=== PATIENT | female | born 1930 | race Caucasian/White ===

== ENCOUNTER 2017-11-29 12:21 | Inpatient (IN) | payer OTHER, BC ==
[~2017-11-29] VITALS: Ht 154.9 cm; Wt 68.5 kg
[2017-11-29] VITALS (9 sets, daily range): BP systolic 89–166; BP diastolic 55–76
[~2017-11-29 12:21] MED LIST: Ascorbic Acid,Ester- PO; CALAN SR,COVER240 MG PO; Calan SR,Covera HS,I PO; Flexeril PO; METHADONE10 MG PO; METHadone HCl PO; OXYCODONE HCL5 MG PO; RESTORIL15 MG PO; RESTORIL30 MG PO; Tums,OsCal PO; Vitamin B Complex PO; Vitamin D PO; XANAX0.25 MG PO; Xanax PO; ZOCOR20 MG PO; Zocor PO; oxyCODONE PO
[2017-11-29 13:06] LABS: HEMATOCRIT 40.9 % (36.0-46.0); HEMOGLOBIN 13.4 G/DL (11.9-15.5); MCH 30.7 PG (29.0-34.0); MCHC 32.8 G/DL (30.0-36.0); MCV 93.6 FL (83-99); PLATELET COUNT 401 K/uL (156-360); RBC DIS.WIDTH-CV 13.2 % (11.8-14.6); RBC DIS.WIDTH-SD 45.4 % (39-53); RED BLOOD COUNT 4.37 M/uL (3.80-5.20); WHITE BLOOD COUNT 9.2 K/uL (4.1-10.2)
[2017-11-29 13:23] LABS: CHLORIDE 99 MEQ/L (99-109); CREATININE 0.6 MG/DL (0.6-1.3); GFR ESTIMATE (CALCULATED) > 59 mL/min/; GLUCOSE 119 mg/dL (70-99); POTASSIUM 3.8 MEQ/L (3.7-5.4); SODIUM 133 MEQ/L (136-147); UREA NITROGEN (BUN) 16 mg/dL (9-23)
[2017-11-29 19:51] LABS: HEMATOCRIT 32.5 % (36.0-46.0); HEMOGLOBIN 10.8 G/DL (11.9-15.5); MCV 95.6 FL (83-99)
[2017-11-30 04:03] VITALS: BP 108/58
[2017-11-30 07:50] VITALS: BP 125/59
[2017-11-30 12:28] VITALS: BP 124/62
[2017-11-30 15:42] VITALS: BP 114/65
[2017-11-30 20:01] VITALS: BP 120/68
[2017-11-30 23:22] VITALS: BP 118/72
[2017-12-01 04:14] VITALS: BP 123/66
[2017-12-01 07:09] VITALS: BP 130/56
[2017-12-01 10:44] LABS: HEMOGLOBIN 9.4 G/DL (11.9-15.5); MCH 31.2 PG (29.0-34.0); MCHC 32.4 G/DL (30.0-36.0); MCV 96.3 FL (83-99); PLATELET COUNT 304 K/uL (156-360); RBC DIS.WIDTH-CV 13.5 % (11.8-14.6); RBC DIS.WIDTH-SD 47.8 % (39-53); WHITE BLOOD COUNT 18.4 K/uL (4.1-10.2)
[2017-12-01 10:46] LABS: RED BLOOD COUNT 3.01 M/uL (3.80-5.20)
[2017-12-01 11:11] LABS: ALBUMIN 3.7 G/DL (3.2-4.8); ALKALINE PHOSPHATASE 80 IU/L (3-129); ALT (GPT) 10 IU/L (3-49); AST (GOT) 14 IU/L (2-34); CHLORIDE 103 MEQ/L (99-109); CREATININE 0.5 MG/DL (0.6-1.3); GFR ESTIMATE (CALCULATED) > 59 mL/min/; GLUCOSE 108 mg/dL (70-99); POTASSIUM 4.4 MEQ/L (3.7-5.4); SODIUM 134 MEQ/L (136-147); TOTAL BILIRUBIN 0.6 MG/DL (0.0-1.0); TOTAL PROTEIN 5.9 G/DL (6.4-8.3); UREA NITROGEN (BUN) 15 mg/dL (9-23)
[2017-12-01 11:20] VITALS: BP 124/56
[2017-12-01 15:45] VITALS: BP 117/56
[2017-12-02 00:07] VITALS: BP 120/60
[2017-12-02 07:09] VITALS: BP 120/69
[2017-12-02 11:18] VITALS: BP 165/71
== END 2017-12-02 15:45 | DRG 516 ==
LOC: SDC 12:21 → 2SOUTH 17:37 → ENRESERV 17:55 → 2EAST 20:19
PROVIDERS: Neurological Surgery; Physician Assistant
PROC: 0QU03JZ Supplement Lumbar Vertebra with Synthetic Substitute, Percutaneous Approach (ICD-10-PCS; principal; 2017-11-29)
DX: S32.019A Unspecified fracture of first lumbar vertebra, initial encounter for closed fracture (principal); G97.61 Postprocedural hematoma of a nervous system organ or structure following a nervous system procedure; M79.81 Nontraumatic hematoma of soft tissue; G25.81 Restless legs syndrome; M43.16 Spondylolisthesis, lumbar region; M48.061 Spinal stenosis, lumbar region without neurogenic claudication; G43.909 Migraine, unspecified, not intractable, without status migrainosus; E78.00 Pure hypercholesterolemia, unspecified; G47.00 Insomnia, unspecified; X58.XXXA Exposure to other specified factors, initial encounter; Z96.651 Presence of right artificial knee joint; I35.0 Nonrheumatic aortic (valve) stenosis; I34.0 Nonrheumatic mitral (valve) insufficiency; I36.1 Nonrheumatic tricuspid (valve) insufficiency; M51.16 Intervertebral disc disorders with radiculopathy, lumbar region; M81.0 Age-related osteoporosis without current pathological fracture; E66.9 Obesity, unspecified; Z68.28 Body mass index [BMI] 28.0-28.9, adult; Z88.6 Allergy status to analgesic agent; Z88.5 Allergy status to narcotic agent
CPT/HCPCS: 72131; 80048; 80053; 85014; 85018; 85027; 93005; J0131; J0690; J1100; J1170; J2405; J3010; J3480; S0020